=== PATIENT | male | born 1970 | race Caucasian/White ===

== ENCOUNTER 2017-02-07 10:20 | Emergency (ER) | payer OTHER ==
[2017-02-07] MEDS ORDERED: IBUPROFEN 800 MG TAB PO STA (11:39)
--- NOTE | 2017-02-07 11:40 | ED ---
Upper Extremity HPI - General Chief Complaint: Extremity Injury, Upper Stated Complaint: rt arm pain Time Seen by Provider: 02/07/17 10:38 Source: patient, RN notes reviewed Mode of arrival: ambulatory Limitations: no limitations - History of Present Illness Initial Comments: Patient is a 46-year-old male presents to the emergency room for evaluation of right arm pain. Patient states he was lifting up a refrigerator and felt a snap in his left forearm. Patient states that he is having weakness while trying to straighten his arm. Patient states he having pain from his proximal forearm to his bicep muscle. Patient states he is having some numbness and tingling in his fingers. Patient denies taking anything for pain after the incident. Patient denies any other injuries during incident. - Related Data Previous Rx's Medication Instructions Recorded HYDROcodone/APAP 5-325MG [[place] 1 tab PO Q6HR PRN #12 tab 02/07/17 5-325] Ibuprofen [Motrin] 600 mg PO Q6HR PRN #20 tab 02/07/17 Allergies Allergy/AdvReac Type Severity Reaction Status Date / Time No Known Allergies Allergy Verified 02/07/17 11:13 Review of Systems ROS Statement: Those systems with pertinent positive or pertinent negative responses have been documented in the HPI. ROS Other: All systems not noted in ROS Statement are negative. Past Medical History Past Medical History: No Reported History History of Any Multi-Drug Resistant Organisms: None Reported Past Surgical History: No Surgical Hx Reported Past Psychological History: No Psychological Hx Reported Smoking Status: Never smoker Past Alcohol Use History: Occasional Past Drug Use History: None Reported General Exam - General Exam Comments Initial Comments: Sitting in exam room, in acute distress. Limitations: no limitations General appearance: alert, in no apparent distress Head exam: Present: atraumatic, normocephalic, normal inspection Eye exam: Present: normal appearance ENT exam: Present: normal exam Neck exam: Present: normal inspection Respiratory exam: Absent: respiratory distress Right Upper Arm exam: Present: tenderness (bicep) Elbow exam: Present: full ROM (patient has full flexion of the elbow. Patient has difficulty extending the elbow secondary to weakness in the bicep muscle) Forearm Wrist exam: Present: full ROM, tenderness (tenderness on palpating over proximal forearm where bicep muscle attaches.) Neuro motor exam: Present: wrist extension intact, thumb opposition intact, thumb IP flexion intact, thumb adduction intact, fingers 2-5 abduction intact Vascular: Present: normal capillary refill (capillary refill less than 2 seconds ), radial pulse (2+), ulnar pulse (2+) Back exam: Present: normal inspection Neurological exam: Present: alert, oriented X3, CN II-XII intact, normal gait Psychiatric exam: Present: normal affect, normal mood Skin exam: Present: warm, dry, intact, normal color. Absent: rash Course Vital Signs 02/07/17 02/07/17 02/07/17 10:27 12:46 13:27 Temperature 98.2 F 98.3 F Pulse Rate 77 85 68 Respiratory 18 16 16 Rate Blood Pressure 187/108 163/93 160/92 O2 Sat by Pulse 95 97 96 Oximetry Medical Decision Making - Medical Decision Making patient is a 46-year-old male presents emergency room for evaluation of right arm pain. Patient is having pain over the insertion point bicep muscle. Eczema forearm. X-ray show no acute findings. Patient does have weakness when trying to extend his arm. Patient placed in a sling and advised to follow-up with educational technology specialist, to rule out possible bicep partial or full tear. Patient states he understands everything that was discussed with him. Return parameters discussed. Case discussed Dr. Yeager. - Radiology Data Radiology results: report reviewed, image reviewed Disposition Clinical Impression: Biceps strain Disposition: HOME SELF-CARE Condition: Good Instructions: Tendon Rupture (ED) Additional Instructions: Take Motrin as needed for pain. Take [place] as needed for severe pain. Ice on and off for 10-15 minutes for the next 24-48 hours. Please follow-up with educational technology specialist for further evaluation. If new symptoms develop or symptoms worsen, please return to the ER. Prescriptions: HYDROcodone/APAP 5-325MG [[place] 5-325] 1 tab PO Q6HR PRN #12 tab PRN Reason: Pain Ibuprofen [Motrin] 600 mg PO Q6HR PRN #20 tab PRN Reason: Pain Referrals: Bhupinder Carmona MD [Medical Doctor] - 1-2 days Time of Disposition: 13:15
[2017-02-07 12:47] VITALS: RESP 16
[2017-02-07 13:29] VITALS: BP 160/92; PULSE 68; TEMP 98.3
--- NOTE | 2017-02-07 13:50 | XR ---
EXAMINATION TYPE: XR humerus RT DATE OF EXAM: 02/07/2017 COMPARISON: NONE HISTORY: Pain TECHNIQUE: 2 views submitted. FINDINGS: The osseous structures are intact and the joint spaces are preserved. Arthropathy of the AC joint an d olecranon spur noted. IMPRESSION: 1. No acute fracture or dislocation.
--- NOTE | 2017-02-07 14:54 | XR ---
EXAMINATION TYPE: XR elbow complete RT DATE OF EXAM: 02/07/2017 COMPARISON: NONE HISTORY: Pain lifting heavy object TECHNIQUE: 3 views right elbow. Digitized images are reviewed on the computer, technical limitations disallowed transfer of the digital images. FINDINGS: No acute fractures are evident. Radius aligns normally with the humerus. No anterior fat pa d elevation is evident. There is an olecranon spur present. IMPRESSION: 1. No acute osseous abnormality right elbow
== END 2017-02-07 13:29 | disposition home or self-care (01) ==
LOC: EC 10:20
DX: S46.211A Strain of muscle, fascia and tendon of other parts of biceps, right arm, initial encounter (principal); X50.0XXA Overexertion from strenuous movement or load, initial encounter
CPT/HCPCS: 99283

== ENCOUNTER 2018-05-30 01:13 | Emergency (ER) | payer OTHER ==
[2018-05-30 01:25] VITALS: BP 126/73; PULSE 73; RESP 18; TEMP 98.8
--- NOTE | 2018-05-30 01:28 | ED ---
General Adult HPI - General Chief complaint: Recheck/Abnormal Lab/Rx Stated complaint: Med Refill Time Seen by Provider: 05/30/18 01:27 Source: patient Mode of arrival: ambulatory Limitations: no limitations - History of Present Illness Initial comments: This patient is a 48-year-old man presenting because she has run out of his prescription antihypertensive. The patient states that his blood pressure been trending up so they had told him to take double his dose. He has not however received a prescription for the higher dose so he has run out of medication. This is second day without having it. Patient states that it felt like his heart rate was high at work, like he was having palpitations, however he has not had any other symptoms. He denies chest pain, dyspnea, headache, abdominal pain or any other symptoms. Onset/Timin -: days(s) Improves with: none Worsens with: none Associated Symptoms: other (Palpitations) Treatments Prior to Arrival: none - Related Data Previous Rx's Medication Instructions Recorded Aspirin 81 mg PO DAILY #30 chew 07/24/17 Atorvastatin [Lipitor] 80 mg PO HS #30 tab 07/24/17 Carvedilol [Coreg] 3.125 mg PO BID-W/MEALS #60 tab 07/24/17 Isosorbide Mononitrate ER [Imdur] 30 mg PO DAILY #30 tab.er.24h 07/24/17 Losartan [Cozaar] 100 mg PO DAILY #30 tab 07/24/17 Nitroglycerin Sl Tabs [Nitrostat] 0.4 mg SUBLINGUAL Q5M PRN #25 tab 07/24/17 Ticagrelor [Brilinta] 90 mg PO BID #90 tab 07/24/17 amLODIPine [Norvasc] 5 mg PO DAILY #30 tab 07/24/17 Carvedilol [Coreg] 6.25 mg PO BID #60 tablet 05/30/18 Allergies Allergy/AdvReac Type Severity Reaction Status Date / Time No Known Allergies Allergy Verified 05/30/18 01:25 Review of Systems ROS Statement: Those systems with pertinent positive or pertinent negative responses have been documented in the HPI. ROS Other: All systems not noted in ROS Statement are negative. Constitutional: Denies: fever, chills, weakness Eyes: Denies: vision change Respiratory: Denies: cough, dyspnea Cardiovascular: Reports: palpitations. Denies: chest pain Gastrointestinal: Denies: abdominal pain Musculoskeletal: Denies: back pain Neurological: Denies: headache Past Medical History Past Medical History: Hyperlipidemia, Hypertension, Myocardial Infarction ([place]) History of Any Multi-Drug Resistant Organisms: None Reported Past Surgical History: No Surgical Hx Reported, Appendectomy, Heart Catheterization With Stent Additional Past Surgical History / Comment(s): RIGHT BICEP REPAIRED 03/04 meniscus repair neck surgery Past Anesthesia/Blood Transfusion Reactions: No Reported Reaction Past Psychological History: No Psychological Hx Reported Smoking Status: Never smoker Past Alcohol Use History: Occasional Past Drug Use History: None Reported - Past Family History Father Family Medical History: Coronary Artery Disease (CAD), Diabetes Mellitus General Exam Limitations: no limitations General appearance: alert, in no apparent distress Head exam: Present: atraumatic, normocephalic Respiratory exam: Present: normal lung sounds bilaterally. Absent: respiratory distress, wheezes, rales, rhonchi, stridor Cardiovascular Exam: Present: regular rate, normal rhythm, normal heart sounds. Absent: systolic murmur, diastolic murmur, rubs, gallop GI/Abdominal exam: Present: soft. Absent: tenderness Extremities exam: Present: normal inspection, normal capillary refill. Absent: pedal edema, calf tenderness Neurological exam: Present: alert Skin exam: Present: warm, dry, intact, normal color. Absent: rash Course Vital Signs 05/30/18 01:21 Temperature 98.8 F Pulse Rate 73 Respiratory 18 Rate Blood Pressure 126/73 O2 Sat by Pulse 97 Oximetry Disposition Clinical Impression: Encounter for medication refill Disposition: HOME SELF-CARE Condition: Good Instructions: Hypertension (ED) Prescriptions: Carvedilol [Coreg] 6.25 mg PO BID #60 tablet Is patient prescribed a controlled substance at d/c from ED?: No Referrals: Alicia Kelsey DO [Primary Care Provider] - 1-2 days
== END 2018-05-30 01:36 | disposition home or self-care (01) ==
LOC: EC 01:13
DX: Z76.0 Encounter for issue of repeat prescription (principal); R00.2 Palpitations; E78.5 Hyperlipidemia, unspecified; I10 Essential (primary) hypertension; I25.2 Old myocardial infarction; Z79.82 Long term (current) use of aspirin; Z79.02 Long term (current) use of antithrombotics/antiplatelets; Z79.899 Other long term (current) drug therapy; Z95.5 Presence of coronary angioplasty implant and graft
CPT/HCPCS: 99281

== ENCOUNTER 2018-09-01 07:15 | Emergency (ER) | payer OTHER ==
[2018-09-01 07:20] VITALS: BP 168/86; PULSE 81; RESP 18; TEMP 98.3
--- NOTE | 2018-09-01 09:19 | XR ---
EXAMINATION TYPE: XR foot limited LT DATE OF EXAM: 09/01/2018 COMPARISON: NONE HISTORY: Pain TECHNIQUE: Two views are submitted. FINDINGS: The osseous structures are intact. There is no acute fracture or dislocation. Joint spaces are p reserved. Small calcaneal spurs noted. Arthropathy of the first MTP. IMPRESSION: 1. No acute fracture or dislocation. If symptoms persist, follow-up exam in 7 to 10 days could be ob tained.
--- NOTE | 2018-09-01 09:38 | ED ---
General Adult HPI - General Chief complaint: Extremity Injury, Lower Stated complaint: left leg pain Time Seen by Provider: 09/01/18 07:25 Source: patient, RN notes reviewed Mode of arrival: ambulatory Limitations: no limitations - History of Present Illness Initial comments: Patient 48-year-old male presented to the emergency room today with a chief complaint of increased pain and irritation to the back of the left heel. Patient states that he was at work a few days ago and was pulling a cart that actually hit the back of his heel. States she's noticed some increased pain and mild swelling to the area since. He states that when he is relaxing it feels better but as soon as he gets up and goes to ambulate particularly and dorsiflexion has pain to this area. Does admit that there is some swelling to the back of the left heel. He denies any other complaints or symptoms. Patient denies any recent fever, chills, shortness of breath, chest pain, back pain, abdominal pain, nausea or vomiting, numbness or tingling, headaches or visual changes, or any other complaints. - Related Data Home Medications Medication Instructions Recorded Confirmed Spironolactone 25 mg PO Q48H 09/01/18 09/01/18 Previous Rx's Medication Instructions Recorded Aspirin 81 mg PO DAILY #30 chew 07/24/17 Atorvastatin [Lipitor] 80 mg PO HS #30 tab 07/24/17 Isosorbide Mononitrate ER [Imdur] 30 mg PO DAILY #30 tab.er.24h 07/24/17 Losartan [Cozaar] 100 mg PO DAILY #30 tab 07/24/17 Nitroglycerin Sl Tabs [Nitrostat] 0.4 mg SUBLINGUAL Q5M PRN #25 tab 07/24/17 Ticagrelor [Brilinta] 90 mg PO BID #90 tab 07/24/17 amLODIPine [Norvasc] 5 mg PO DAILY #30 tab 07/24/17 Carvedilol [Coreg] 6.25 mg PO BID #60 tablet 05/30/18 Ibuprofen [Motrin] 600 mg PO Q6HR PRN #40 day 09/01/18 Allergies Allergy/AdvReac Type Severity Reaction Status Date / Time No Known Allergies Allergy Verified 09/01/18 07:57 Review of Systems ROS Statement: Those systems with pertinent positive or pertinent negative responses have been documented in the HPI. ROS Other: All systems not noted in ROS Statement are negative. Past Medical History Past Medical History: Hyperlipidemia, Hypertension, Myocardial Infarction ([place]) History of Any Multi-Drug Resistant Organisms: None Reported Past Surgical History: No Surgical Hx Reported, Appendectomy, Heart Catheterization With Stent Additional Past Surgical History / Comment(s): RIGHT BICEP REPAIRED 03/04 meniscus repair neck surgery Past Anesthesia/Blood Transfusion Reactions: No Reported Reaction Past Psychological History: No Psychological Hx Reported Smoking Status: Never smoker Past Alcohol Use History: Occasional Past Drug Use History: None Reported - Past Family History Father Family Medical History: Coronary Artery Disease (CAD), Diabetes Mellitus General Exam - General Exam Comments Initial Comments: General: The patient is awake and alert, in no distress, and does not appear acutely ill. Neck: The neck is supple, there is no tenderness or JVD. Musculoskeletal: Patient does have mild swelling to the back of the left heel. It is firm on palpation over the bony aspect. There is no fluctuant area. Sensations are intact. There is no redness. No streaking. No tenderness to left calf. Pedal pulses 2+. Strength 5/5. Neurological: A&O x 3. CN II-XII intact, There are no obvious motor or sensory deficits. Coordination appears grossly intact. Speech is normal. Skin: Skin is warm and dry and no rashes or lesions are noted. Psychiatric: Normal mood and affect. Limitations: no limitations Course Vital Signs 09/01/18 07:16 Temperature 98.3 F Pulse Rate 81 Respiratory 18 Rate Blood Pressure 168/86 O2 Sat by Pulse 96 Oximetry Medical Decision Making - Medical Decision Making X-ray reviewed is negative for any acute abnormality. Results were discussed with the patient. He does have some mild swelling and tenderness over the bony aspect of the left calcaneus. Patient states pain is worse with dorsiflexion. Possible inflammatory changes at the insertion of the Achilles. Patient will be treated with anti-inflammatories. Is advised to ice area. Advised return if symptoms worsen follow-up family doctor. Disposition Clinical Impression: Heel pain Disposition: HOME SELF-CARE Condition: Good Instructions: Tendinitis (ED) Additional Instructions: Please use medication as discussed. Please follow-up with family doctor in the next 2-5 days of symptoms have not improved. Please return to emergency room if the symptoms increase or worsen or for any other concerns. Prescriptions: Ibuprofen [Motrin] 600 mg PO Q6HR PRN #40 day PRN Reason: Pain Is patient prescribed a controlled substance at d/c from ED?: No Referrals: Alicia Kelsey DO [Primary Care Provider] - 1-2 days Time of Disposition: 09:35
== END 2018-09-01 09:42 | disposition home or self-care (01) ==
LOC: EC 07:15
DX: M79.672 Pain in left foot (principal); M79.89 Other specified soft tissue disorders; I10 Essential (primary) hypertension; I25.2 Old myocardial infarction; Z95.818 Presence of other cardiac implants and grafts; Z79.899 Other long term (current) drug therapy
CPT/HCPCS: 99283